=== PATIENT | female | born 1990 | race Caucasian/White ===

== ENCOUNTER 2018-04-28 14:02 | Emergency (ER) | payer OTHER ==
[2018-04-28 14:30] VITALS: BP 137/95; PULSE 97; TEMP 98.9; BMI 33.3
--- NOTE | 2018-04-28 15:01 | PDOC ---
History of Present Illness - General Chief Complaint: Eye Problem Stated Complaint: LEFT EYE PROBLEM Time Seen by Provider: 04/28/18 14:09 History Source: Patient Past History - Past Medical History Home Medications: Ambulatory Orders Cetirizine HCl/Pseudoephedrine [Zyrtec-D Tablet] 1 each PO BID #14 tab.er.12h Tobramycin/Dexamethasone [Tobradex Eye Drops] 10 ml OP TID #1 drops.susp COPD: No - Suicide/Smoking/Psychosocial Hx Smoking History: Never smoked Have you smoked in the past 12 months: No Information on smoking cessation initiated: No Hx Alcohol Use: No Drug/Substance Use Hx: No *Physical Exam - Vital Signs Last Vital Signs Temp Pulse Resp BP Pulse Ox 98.9 F 97 H 20 137/95 98 04/28/18 14:03 04/28/18 14:03 04/28/18 14:03 04/28/18 14:03 04/28/18 14:03 Moderate Sedation - Procedure Monitoring Vital Signs: Procedure Monitoring Vital Signs Temperature 98.9 F 04/28/18 14:03 Pulse Rate 97 H 04/28/18 14:03 Respiratory Rate 20 04/28/18 14:03 Blood Pressure 137/95 04/28/18 14:03 O2 Sat by Pulse Oximetry (%) 98 04/28/18 14:03 *DC/Admit/Observation/Transfer Diagnosis at time of Disposition: Conjunctivitis due to adenovirus, left eye Allergy Qualifiers: Encounter type: initial encounter Qualified Code(s): T78.40XA - Allergy, unspecified, initial encounter - Discharge Dispostion Disposition: HOME Condition at time of disposition: Stable Decision to Admit order: No - Prescriptions Prescriptions: Cetirizine HCl/Pseudoephedrine [Zyrtec-D Tablet] 1 each PO BID #14 tab.er.12h Tobramycin/Dexamethasone [Tobradex Eye Drops] 10 ml OP TID #1 drops.susp - Referrals Referrals: Derick Aguilar MD [Staff Physician] - - Patient Instructions Printed Discharge Instructions: How to Instill Eye Drops Additional Instructions: Avoid any excessive light, wind , etc - Post Discharge Activity Forms/Work/School Notes: Back to Work
== END 2018-04-28 15:28 | disposition home or self-care (01) ==
LOC: FER 14:02
DX: B30.1 Conjunctivitis due to adenovirus (principal); T78.40XA Allergy, unspecified, initial encounter
CPT/HCPCS: 99282-25